=== PATIENT | male | born 1990 | race Caucasian/White ===

== ENCOUNTER 2018-12-26 20:18 | Emergency (ER) | payer OTHER ==
[2018-12-26 20:39] VITALS: BP 129/74
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
--- NOTE | 2018-12-27 20:05 | UC ---
- Progress Note Progress Note: Radiologist reading of left wrist x-ray from December 26, 2018 comes back as no fracture. The provider interpretation same date is also no fracture therefore there is no discrepancy. Course/Dx - Diagnoses Provider Diagnoses: Left wrist sprain Discharge - Sign-Out/Discharge Documenting (check all that apply): Patient Departure All imaging exams completed and their final reports reviewed: Yes - Discharge Plan Condition: Stable Disposition: HOME Patient Education Materials: Wrist Sprain (ED) Referrals: Jamin Miranda MD [Medical Doctor] - No Primary Care Phys,NOPCP [Primary Care Provider] - Additional Instructions: The x-ray performed in the clinic today showed no evidence of a fracture. The x -ray will be reviewed by the radiologist tomorrow. We will notify you if they see anything change her plan of care. Rest the arm as much as possible. Wear the splint that was applied in the clinic until you follow up with orthopedic surgery. You may remove to shower but should wear at all other times. Apply ice to the affected area for 15-20 minutes at least 4 times a day to help with the pain and swelling. Elevate the arm to help reduce swelling. Take acetaminophen (Tylenol) or ibuprofen (Advil, Motrin) according to directions as needed for pain. Follow up with orthopedic surgery in 5-7 days days for reevaluation. Seek immediate medical attention if you have severe pain not managed with pain medication, you are unable to walk or bear any weight, develop numbness or tingling in the hand or fingers, or have any worsening of symptoms. - Billing Disposition and Condition Condition: STABLE Disposition: Home
== END 2018-12-26 21:03 | disposition home or self-care (01) ==
LOC: UCCORT 20:18
DX: S63.502A Unspecified sprain of left wrist, initial encounter (principal); V86.59XA Driver of other special all-terrain or other off-road motor vehicle injured in nontraffic accident, initial encounter; Y93.89 Activity, other specified; F17.210 Nicotine dependence, cigarettes, uncomplicated; Z88.0 Allergy status to penicillin
CPT/HCPCS: 99202; G0463